=== PATIENT | male | born 1955 | race Caucasian/White ===

== ENCOUNTER 2019-06-03 11:52 | Inpatient (IN) | payer SELFPAY ==
[~2019-06-03] VITALS: Ht 167.6 cm; Wt 73.9 kg
[2019-06-03] MEDS ORDERED: NACL 0.9% 1,000 ML IV ONE (11:59)
[2019-06-03] MEDS ORDERED: ASPIRIN 81 MG TAB.CHEW PO ONE (12:00)
[2019-06-03 12:02] VITALS: BP_SYST 190
--- NOTE | 2019-06-03 12:10 | NUR ---
Patient to ER bed 4 to gown for evaluation. Side rails up. Report given to Ernesto MALAGON.
--- NOTE | 2019-06-03 12:12 | NUR ---
ER at bedside examining patient.
--- NOTE | 2019-06-03 12:13 | NUR ---
Pt presents to ED c/o CP nonradiating x 3 weeks. Pt admits to noncompliance w/meds due to inability to refill. Pt has no acute distres noted at this time. EKG done in triage prior to placement in tx area.
[2019-06-03] MEDS ORDERED: MAG HYDROX/AL HYDROX/SIMETH 30 ML, DICYCLOMINE HCL 20 MG, LIDOCAINE VISCOUS 2% 15ML (PO... PO ONE ×3 (12:15)
[2019-06-03] MEDS ORDERED: NACL 0.9% 2,000 ML IV ONE (12:15)
--- NOTE | 2019-06-03 12:17 | NUR ---
BS 366
[2019-06-03 12:32] LABS: BASOPHILS % (AUTO) 0.4 % (0.0-2.0); EOSINOPHILS % (AUTO) 0.4 % (0.0-4.0); HEMATOCRIT 50.5 % (36-54); HEMOGLOBIN 17.2 g/dL (14.0-18.0); LYMPHOCYTES # (AUTO) 1.4 K/uL (1.0-5.5); LYMPHOCYTES % (AUTO) 21.4 % (20.5-51.5); MEAN CORPUSCULAR HEMOGLOBIN 33 pg (27-31); MEAN CORPUSCULAR HGB CONC 34 % (32-36); MEAN CORPUSCULAR VOLUME 96 fL (79.0-98.0); MONOCYTES # (AUTO) 0.5 K/uL (0.0-1.0); MONOCYTES % (AUTO) 7.1 % (1.7-9.3); NEUTROPHILS # (AUTO) 4.5 K/uL (1.8-7.7); NEUTROPHILS % (AUTO) 70.7 % (40.0-70.0); PLATELET COUNT (AUTO) 229 K/uL (130-430); RED BLOOD CELL COUNT(AUTO) 5.27 MIL/uL (4.2-6.2); RED CELL DISTRIBUTION WIDTH 12.9 % (9.0-15.0); WHITE BLOOD COUNT (AUTO) 6.4 K/uL (4.8-10.8)
[2019-06-03 12:50] LABS: CALCIUM 9.1 mg/dL (8.4-11.0); CREATININE 1.22 mg/dL (0.55-1.30); POTASSIUM 4.1 mmol/L (3.5-5.1); PROTHROMBIN TIME 10.5 SECS (9.5-12.5)
--- NOTE | 2019-06-03 12:50 | NUR ---
RN places pt on tele monitor. Meds given. IV fluids infusing.
[2019-06-03 12:57] LABS: TOTAL BILIRUBIN 0.6 mg/dL (0.0-1.0)
[2019-06-03] MEDS ORDERED: NITROGLYCERIN 0.4 MG TAB.SUBL SL ONE ×2 (13:30→13:47)
[2019-06-03] MEDS ORDERED: cloNIDine HCL 0.1 MG TABLET PO ONE (13:30)
[2019-06-03] MEDS ORDERED: MORPHINE 4 MG/ML INJ. SYRINGE IVP ONE (13:30)
--- NOTE | 2019-06-03 13:39 | NUR ---
Pt had episode of chest pain while RN was at bedside. RN did stat EKG. Given to MD.
--- NOTE | 2019-06-03 13:40 | NUR ---
Nitro given, ASA given, Morphine Given. pain has subsided at this time.
[2019-06-03] MEDS ORDERED: MORPHINE 4 MG/ML INJ. SYRINGE ONE (13:47)
--- NOTE | 2019-06-03 14:00 | NUR ---
BS re check 289
--- NOTE | 2019-06-03 14:55 | NUR ---
Patient will be admitted to care of Dr. Rodriguez. Admitted to Telemetry unit. No room available per Vickie, charge nurse. Patient Telemetry Hold at this time.
[2019-06-03] MEDS ORDERED: ESOM20CA33 PO (15:08)
[2019-06-03 15:52] LABS: BILIRUBIN,URINE NEGATIVE (NEGATIVE); BLOOD, URINE NEGATIVE (NEGATIVE); CLARITY/URINE CLEAR (CLEAR); COLOR,URINE YELLOW (YELLOW); GLUCOSE,URINE 3+ (NEGATIVE); KETONES,URINE NEGATIVE (NEGATIVE); LEUKOCYTE ESTERASE ,URINE NEGATIVE (NEGATIVE); NITRITE, URINE NEGATIVE (NEGATIVE); PROTEIN URINE NEGATIVE (NEGATIVE); UROBILINOGEN,URINE 0.2 (0.2-1.0)
[2019-06-03] MEDS ORDERED: PANTOPRAZOLE SODIUM 40 MG TAB PO ONE (16:00)
[2019-06-03] MEDS ORDERED: DEXTROSE 50% JECT 50 ML DISP.SYRIN IVP PRN ×2 (16:00)
[2019-06-03 16:04] LABS: RBC,URINE 0-3 /HPF (0-3); WBC,URINE 0-3 /HPF (0-3)
[2019-06-03 16:05] LABS: BACTERIA,URINE RARE /HPF (None Seen); MUCUS,URINE None Seen /LPF (None Seen)
--- NOTE | 2019-06-03 16:10 | NUR ---
RECEIVED ROOM ASSIGNMENT FROM [facility]. PATIENT TO GO TO [facility]. DR MEJIA AT BEDSIDE.
[2019-06-03] MEDS ORDERED: LORazepam 1 MG TABLET PO PRN (16:15)
[2019-06-03] MEDS ORDERED: THIAMINE HCL 100 MG TABLET PO ONE (16:15)
[2019-06-03 16:32] LABS: OPIATE, URINE POSITIVE (NEG <=100)
[2019-06-03 16:33] LABS: BARBITURATE, URINE NEGATIVE (NEG <=200); BENZODIAZEPINE, URINE NEGATIVE (NEG <=150); CANNABINOID, URINE NEGATIVE (NEG <=50); COCAINE, URINE NEGATIVE (NEG <=150); METHAMPHETAMINES SCREEN,URINE NEGATIVE (NEG <=500); PHENCYCLIDINE SCREEN,URINE NEGATIVE (NEG <=25); UR TRICYCLIC ANTIDEPRESSANTS NEGATIVE (NEG <=300); URINE AMPHETAMINE NEGATIVE (NEG <=500); URINE METHADONE NEGATIVE (NEG <=200); URINE OXYCODONE SCREEN NEGATIVE (NEG <=100); URINE PROPOXYPHENE SCREEN NEGATIVE (NEG <=300)
--- NOTE | 2019-06-03 16:35 | NUR ---
ADMISSION The patient, KWASI HAYDEN, 63 y/o, M admitted by DEREK MEJIA MD, was given written information regarding hospital policies, unit procedures and contact persons. NO ACUTE DISTRESS NOTED. ALL NEEDS MET. CALL LIGHT IN REACH. BED IN LOWEST AND LOCKED POSITION. FALL AND ASPIRATION PRECAUTIONS IN PLACE. RECEIVING 2D ECHO AT BEDSIDE. CONTINUE TO MONITOR. Valuables were checked and LOGGED IN.
[2019-06-03 17:02] VITALS: BP_SYST 169
[2019-06-03] MEDS ORDERED: FLU VACC QS2019-20 36MOS UP/PF 60 MCG/0.5 ML SYRINGE I.M. PRN (17:45)
--- NOTE | 2019-06-03 17:56 | NUR ---
PRN MEDS PT COMPLAINING OF ANXIETY. ATIVAN ADMINISTERED ORDERED PER MD. EDUCATION GIVEN. TOLERATED WELL. NO ACUTE DISTRESS NOTED. ALL NEEDS MET. CALL LIGHT IN REACH. FALL AND ASPIRATION PRECAUTIONS IN PLACE. CONTINUE TO MONITOR.
--- NOTE | 2019-06-03 18:45 | NUR ---
CLOSING NOTE PT AWAKE, ALERT AND ORIENTED IN BED. NONLABORED BREATHING NOTED. PAIN IS CONTROLLED. NO ACUTE DISTRESS NOTED. IV LINE INTACT AND PATENT, NO SIGNS OF INFILTRATION. ALL NEEDS MET. CALL LIGHT IN REACH. FALL AND ASPIRATION PRECAUTIONS IN PLACE. BED IN LOWEST AND LOCKED POSITION. WILL ENDORSE TO NOC NURSE.
--- NOTE | 2019-06-03 19:30 | NUR ---
Opening notes Received report. Patient is resting in bed. Patient complaining of chest pain, does not appear to be in distress. Breathing even and unlabored. Will page MD for orders. IV patent and intact, no signs of infiltration noted. Clarified with patient about code status, patient stating "I just do not want to end up as a vegetable." Patient would like to speak to MD for more information. No other needs at this time. Call light with the patient. Safety precautions in place.
[2019-06-03 20:00] VITALS: BP_SYST 134
--- NOTE | 2019-06-03 20:10 | NUR ---
Natalie Rodriguez s/w Amy
[2019-06-03] MEDS ORDERED: NITROGLYCERIN 0.4 MG TAB.SUBL SL PRN (20:15)
--- NOTE | 2019-06-03 20:15 | NUR ---
Spoke to Dr. Rodriguez and informed MD about patient's chest pain and also clarified accucheck orders. New orders for nitroglycerin, morphine, and fingersticks ACHS. Verified with .
[2019-06-03] MEDS: ENOXAPARIN SODIUM 40 MG/0.4 ML SYRINGE SUBCUT SCH (20:40)
[2019-06-03] MEDS: INSULIN REGULAR, HUMAN 100 UNITS/ML, 10 ML VIAL (humuLIN R) SUBCUT PRN (20:49)
[2019-06-03] MEDS: CARVEDILOL 6.25 MG TABLET (COREG) PO SCH (21:00)
--- NOTE | 2019-06-03 21:00 | NUR ---
Medications given. Educated the action and side effects of medications. Patient verbalized understanding and tolerated well. Will continue to monitor. No other needs. call light with the patient. Safety precautions in place.
[2019-06-03] MEDS: LOSARTAN POTASSIUM 50 MG TABLET (COZAAR) PO SCH (21:57)
[2019-06-03] MEDS: TEMAZEPAM 15 MG CAPSULE PO SCH (21:58)
--- NOTE | 2019-06-03 22:30 | NUR ---
Resting Patient resting in bed, no signs of distress noted. VSS. Patient denies pain at this time. Provided patient with ice water. No other needs. Call light with the patient. Safety precautions in place.
[2019-06-04] VITALS: BP_SYST 125
--- NOTE | 2019-06-04 00:30 | NUR ---
Sleeping No signs of distress noted. Breathing even and unlabored. Call light with the patient. Safety precautions in place.
--- NOTE | 2019-06-04 02:30 | NUR ---
Sleeping No signs of distress noted. Breathing even and unlabored. Call light with the patient. safety precautions in place.
[2019-06-04] MEDS: MORPHINE 4 MG/ML INJ. SYRINGE IVP PRN ×3 (04:19→16:05)
--- NOTE | 2019-06-04 04:50 | NUR ---
Pain Patient complains of pain, prn pain medications given. Educated the action and side effects and fall precautions. Patient verbalized understanding and tolerated well. No other need. Call light with the patient. Safety precautions in place.
[2019-06-04] MEDS: INSULIN REGULAR, HUMAN 100 UNITS/ML, 10 ML VIAL (humuLIN R) SUBCUT PRN ×4 (06:23→20:42)
--- NOTE | 2019-06-04 06:50 | NUR ---
Closing notes Patient is resting in bed, watching TV. No signs of distress noted. Breathing even and unlabored. IV patent and intact, no signs of infiltration noted. No complaints of pain. all needs met throughout the shift. Call light with the patient. Safety precautions in place. Will endorse care to day shift RN.
--- NOTE | 2019-06-04 07:25 | NUR ---
Opening Note Received bedside report from endorsing RN for continuation of care. Received patient awake in bed, watching TV and denies any SOB or pain. No signs or symptoms of acute distress noted. Bed locked in lowest position, bed alarm on, and call light within reach. Education provided on use of call light and patient verbalized understanding. Fall and safety precautions in place.
[2019-06-04 08:00] VITALS: BP_SYST 132
[2019-06-04] MEDS: ASPIRIN 81 MG TABLET(ECOTRIN) PO SCH (08:29)
[2019-06-04] MEDS: THIAMINE HCL 100 MG TABLET PO SCH (08:30)
[2019-06-04] MEDS: LOSARTAN POTASSIUM 50 MG TABLET (COZAAR) PO SCH ×2 (08:30→20:31)
[2019-06-04] MEDS: PANTOPRAZOLE SODIUM 40 MG TAB PO SCH (08:30)
[2019-06-04] MEDS: CARVEDILOL 6.25 MG TABLET (COREG) PO SCH ×2 (08:31→20:31)
[2019-06-04 09:12] LABS: BASOPHILS % (AUTO) 0.4 % (0.0-2.0); EOSINOPHILS # (AUTO) 0.1 K/uL (0.0-0.4); EOSINOPHILS % (AUTO) 1.1 % (0.0-4.0); HEMATOCRIT 45.3 % (36-54); HEMOGLOBIN 15.4 g/dL (14.0-18.0); LYMPHOCYTES # (AUTO) 2.6 K/uL (1.0-5.5); MEAN CORPUSCULAR HEMOGLOBIN 33 pg (27-31); MEAN CORPUSCULAR HGB CONC 34 % (32-36); MEAN CORPUSCULAR VOLUME 96 fL (79.0-98.0); MONOCYTES # (AUTO) 0.4 K/uL (0.0-1.0); MONOCYTES % (AUTO) 6.5 % (1.7-9.3); NEUTROPHILS # (AUTO) 3.4 K/uL (1.8-7.7); PLATELET COUNT (AUTO) 212 K/uL (130-430); RED BLOOD CELL COUNT(AUTO) 4.73 MIL/uL (4.2-6.2); RED CELL DISTRIBUTION WIDTH 12.8 % (9.0-15.0); WHITE BLOOD COUNT (AUTO) 6.5 K/uL (4.8-10.8)
[2019-06-04 09:43] LABS: ALBUMIN 3.4 g/dL (3.4-4.8); CALCIUM 8.4 mg/dL (8.4-11.0); CREATININE 0.86 mg/dL (0.55-1.30); FREE T4 (FREE THYROXINE) 1.1 ng/dl (0.8-1.5); THYROID STIMULATING HORMONE 1.01 uIu/mL (0.36-3.74); TOTAL BILIRUBIN 0.5 mg/dL (0.0-1.0)
--- NOTE | 2019-06-04 10:22 | NUR ---
Dr. Reynolds in to see patient. New orders received.
--- NOTE | 2019-06-04 11:30 | NUR ---
Dr. Rodriguez in to see patient. New orders received.
--- NOTE | 2019-06-04 12:08 | NUR ---
Patient's at bedside. Updated on patient status and plan of care. Education provided and all questions answered clearly.
[2019-06-04 12:15] VITALS: BP_SYST 144
--- NOTE | 2019-06-04 12:34 | NUR ---
GI consult called: for Dr. Tapia, regarding epigastric pain, ordered by Dr. Rodriguez, spoke with Angle.
[2019-06-04] MEDS ORDERED: PANTOPRAZOLE SODIUM 40 MG/VIAL (PROTONIX) IVP ONE (15:15)
--- NOTE | 2019-06-04 15:26 | NUR ---
Received new orders per Dr. Wilburn.
[2019-06-04 16:14] VITALS: BP_SYST 153
[2019-06-04] MEDS: SUCRALFATE 1 GM TABLET PO SCH ×2 (17:10→20:32)
--- NOTE | 2019-06-04 18:02 | NUR ---
Patient sitting up in bed, eating dinner and watching TV. Patient denies any SOB or pain. No signs or symptoms of acute distress noted.
--- NOTE | 2019-06-04 19:10 | NUR ---
Endorsement Endorsed bedside report to oncoming RN using SBAR approach for continuation of care.
--- NOTE | 2019-06-04 19:30 | NUR ---
Opening notes Received report. Patient is resting in bed. No signs of distress noted. Breathing even and unlabored on room air. Patient denies pain at this time. Updated patient on plan of care. Patient to have nothing by mouth starting midnight. Patient verbalized understanding. No other needs. Call light with the patient. Safety precautions in place.
[2019-06-04 20:05] VITALS: BP_SYST 151
[2019-06-04] MEDS: PANTOPRAZOLE SODIUM 40 MG/VIAL (PROTONIX) IVP SCH (20:32)
--- NOTE | 2019-06-04 20:35 | NUR ---
Medications given. Educated the action and side effects of medications. Patient verbalized understanding and tolerated well. No signs of allergic reaction noted. No other needs at this time. Call light with the patient. Safety precautions in place.
[2019-06-04] MEDS: ENOXAPARIN SODIUM 40 MG/0.4 ML SYRINGE SUBCUT SCH (20:40)
[2019-06-04] MEDS: TEMAZEPAM 15 MG CAPSULE PO SCH (20:41)
--- NOTE | 2019-06-04 23:16 | NUR ---
Sleeping No signs of distress noted. Breathing even and unlabored. No needs. Call light with the patient. Safety precautions in place.
[2019-06-04 23:43] VITALS: BP_SYST 111
--- NOTE | 2019-06-05 02:00 | NUR ---
Sleeping No signs of distress noted. Breathing even and unlabored. Call light with the patient. Safety precautions in place.
--- NOTE | 2019-06-05 04:30 | NUR ---
Sleeping Patient asleep. No signs of distress noted. Breathing even and unlabored. Call light with the patient. Safety precautions in place.
[2019-06-05] MEDS: SUCRALFATE 1 GM TABLET PO SCH ×4 (06:19→21:50)
--- NOTE | 2019-06-05 07:04 | NUR ---
Closing notes Patient is resting in bed, watching TV. No signs of distress noted. Breathing even and unlabored. IV patent and intact, no signs of infiltration noted. No complaints of pain. Patient NPO since midnight. All needs met throughout the shift. Call light with the patient. Safety precautions in place. Will endorse care to day shift RN.
--- NOTE | 2019-06-05 07:30 | NUR ---
AM ROUNDS: PATIENT AWAKE ON THE BED. STILL COMPLAINING OF CHEST THROBBING,NO MEDS GIVEN PER NUCLEAR MEDICINE, DUE TO PT FOR DAVID SCAN THIS MORNING.MAINTAINED NOTHING BY MOUTH INSTRUCTED,PT UNDERSTAND THE INSTRUCTIONS. CALL LIGHT WITH IN REACH. CONDITION GUARDED.
[2019-06-05 07:53] VITALS: BP_SYST 148
[2019-06-05] MEDS ORDERED: REGADENOSON 0.4 MG/5 ML SYRINGE IVP ONE (09:00)
[2019-06-05] MEDS: PANTOPRAZOLE SODIUM 40 MG TAB PO SCH (09:00)
--- NOTE | 2019-06-05 09:25 | NUR ---
Nuclear medicine: Patient to nuclear medicine for [facility] stress study via wheel chair.Stable. Maintained npo as ordered.
--- NOTE | 2019-06-05 11:00 | NUR ---
Rn rounds: Patient back from nuclear medicine,in the room. Stable.
--- NOTE | 2019-06-05 11:10 | NUR ---
High fat diet: High fat diet was given to patient and tolerated well,as part of mikhail scan study.
--- NOTE | 2019-06-05 11:30 | NUR ---
Blood sugar: Blood sugar taken,with insulin coverage given per sliding scale.no problem.
[2019-06-05] MEDS: INSULIN REGULAR, HUMAN 100 UNITS/ML, 10 ML VIAL (humuLIN R) SUBCUT PRN ×2 (12:10→17:30)
[2019-06-05] MEDS: ASPIRIN 81 MG TABLET(ECOTRIN) PO SCH (13:36)
[2019-06-05] MEDS: PANTOPRAZOLE SODIUM 40 MG/VIAL (PROTONIX) IVP SCH ×2 (13:36→21:49)
[2019-06-05] MEDS: LOSARTAN POTASSIUM 50 MG TABLET (COZAAR) PO SCH ×2 (13:36→21:51)
[2019-06-05] MEDS: CARVEDILOL 6.25 MG TABLET (COREG) PO SCH ×2 (13:37→21:50)
[2019-06-05 15:42] VITALS: BP_SYST 118
[2019-06-05] MEDS: THIAMINE HCL 100 MG TABLET PO SCH (15:42)
[2019-06-05] MEDS ORDERED: LACTULOSE 20 GM/30 ML UDC PO ONE (17:30)
--- NOTE | 2019-06-05 17:31 | NUR ---
Blood Sugar: Blood qhgcl=597ia/dl,Humulin R 2 units subq given per sliidng scale. No problem.
--- NOTE | 2019-06-05 17:32 | NUR ---
Dc Tele: Downgraded patient to medical surgical unit as ordered.
--- NOTE | 2019-06-05 18:49 | NUR ---
End of shift: Patient tolerated meal. No acute distress. will endorsed to incoming night nurse patient for egd in am and gastric emptying.Instructed npo after midnight. condition guarded.
[2019-06-05 20:00] VITALS: BP_SYST 148
--- NOTE | 2019-06-05 21:00 | NUR ---
PT MONITORED AWAKE ALERT AND ORIENTED , PT IS SCHEDULED TO GO FOR GASTRIC EMPTING AND EGD IN THE MORNING . PT INSTRUCTED TO BE NPO AFTER MIDNIGHT PT GIVEN MORPHINE FOR PAIN , INSTRUCTED THAT HE CAN NOT GET ANY MORE PAIN MEDICATION FROM 0500 PT BLOOD SUGAR IS 153 NO , NO COVERAGE .WILL MONITOR PT THROUGH THE NIGHT .
[2019-06-05] MEDS: MORPHINE 4 MG/ML INJ. SYRINGE IVP PRN (21:40)
[2019-06-05] MEDS: TEMAZEPAM 15 MG CAPSULE PO SCH (21:51)
[2019-06-05] MEDS: ENOXAPARIN SODIUM 40 MG/0.4 ML SYRINGE SUBCUT SCH (21:54)
[2019-06-06] VITALS: BP_SYST 140; BP_SYST 142
--- NOTE | 2019-06-06 | NUR ---
PT NPO FOR PROCEDURE TOMMORROW , CONTINUE TO MONITOR PT .
--- NOTE | 2019-06-06 05:30 | NUR ---
PT BLOOD SUGAR IS 138. PT CONTINUE TO BE NPO . FOR EGD AND GASTRIC EMPTYING. CHARLI CONTINUE TO MONITOR PTAS STATED .
[2019-06-06] MEDS: SUCRALFATE 1 GM TABLET PO SCH ×4 (07:00→20:58)
--- NOTE | 2019-06-06 07:30 | NUR ---
OPENING NOTES: RECEIVED PATIENT FROM TRACK OILER NURSE. PATIENT IS AWAKE AND ALERT x4 LAYING DOWN IN BED. PATIENT STATES HE HAS PAIN 6/10. PRN PAIN MEDS WILL BE GIVEN. PATIENT IS TOLERATING OXYGEN AT ROOM AIR WITH NO SIGNS OF DISTRESS OR SHORTNESS OF BREATH NOTED. IV SITE IS PATENT WITH NO SIGNS OF INFILTRATION NOTED. PATIENT IN STABLE CONDITION. SAFETY, FALL, AND ASPIRATION PRECAUTIONS ARE IN PLACE. BED LOCKED IN LOWEST POSITION WITH CALL LIGHT IN REACH. WILL CONTINUE TO MONITOR PATIENT FOR ANY CHANGES.
[2019-06-06] MEDS ORDERED: DIPHENHYDRAMINE INJ 50 MG/ML VIAL ONE (07:43)
[2019-06-06] MEDS ORDERED: MEPERIDINE HCL/PF 100 MG/ML AMP ONE (07:43)
[2019-06-06] MEDS ORDERED: SIMETHICONE 40 MG/0.6 ML ML ONE (07:43)
[2019-06-06] MEDS: metFORMIN HCL 500 MG TABLET PO SCH ×2 (08:00→17:21)
[2019-06-06 08:24] VITALS: BP_SYST 146
[2019-06-06] MEDS: MIDAZOLAM HCL 5 MG/5 ML VIAL ONE ×2 (08:47→08:50)
[2019-06-06] MEDS: PANTOPRAZOLE SODIUM 40 MG TAB PO SCH (09:54)
[2019-06-06] MEDS: LOSARTAN POTASSIUM 50 MG TABLET (COZAAR) PO SCH ×2 (09:54→21:03)
[2019-06-06] MEDS: THIAMINE HCL 100 MG TABLET PO SCH (09:54)
[2019-06-06] MEDS: PANTOPRAZOLE SODIUM 40 MG/VIAL (PROTONIX) IVP SCH (09:55)
[2019-06-06] MEDS: ASPIRIN 81 MG TABLET(ECOTRIN) PO SCH (09:55)
[2019-06-06] MEDS: CARVEDILOL 6.25 MG TABLET (COREG) PO SCH ×2 (09:55→21:00)
--- NOTE | 2019-06-06 10:05 | NUR ---
RN ROUNDS: PATIENT IS AWAKE AND ALERT x4 LAYING DOWN IN BED. PATIENT STATES HIS PAIN IS STILL 7/10. PRN PAIN MEDS WILL BE GIVEN. NO SIGNS OF DISTRESS OR SHORTNESS OF BREATH NOTED. PATIENT IN STABLE CONDITION. WILL CONTINUE TO MONITOR PATIENT FOR ANY CHANGES.
[2019-06-06 11:23] VITALS: BP_SYST 122
[2019-06-06] MEDS: INSULIN REGULAR, HUMAN 100 UNITS/ML, 10 ML VIAL (humuLIN R) SUBCUT PRN ×3 (11:32→21:59)
[2019-06-06] MEDS: MORPHINE 4 MG/ML INJ. SYRINGE IVP PRN (11:50)
--- NOTE | 2019-06-06 11:50 | NUR ---
PRN PAIN MEDS GIVEN: PATIENT STATES HIS PAIN IS 7/10. PRN PAIN MED WAS GIVEN. WILL RECHECK PATIENT TO EVALUATE EFFECTIVENESS.
--- NOTE | 2019-06-06 12:08 | NUR ---
RN ROUNDS: PATIENT IS AWAKE AND ALERT x4 LAYING DOWN IN BED. NO SIGNS OF DISTRESS OR SHORTNESS OF BREATH NOTED. PATIENT IN STABLE CONDITION. WILL CONTINUE TO MONITOR PATIENT FOR ANY CHANGES.
[2019-06-06] MEDS ORDERED: LACTULOSE 20 GM/30 ML UDC PO ONE (14:00)
--- NOTE | 2019-06-06 14:14 | NUR ---
RN ROUNDS: PATIENT IS ASLEEP LAYING DOWN IN BED. NO SIGNS OF DISTRESS OR SHORTNESS OF BREATH NOTED. PATIENT IN STABLE CONDITION. WILL CONTINUE TO MONITOR PATIENT FOR ANY CHANGES.
[2019-06-06 15:58] VITALS: BP_SYST 136
--- NOTE | 2019-06-06 16:29 | NUR ---
RN ROUNDS: PATIENT IS AWAKE AND ALERT x4 LAYING DOWN IN BED. PATIENT DENIES ANY PAIN AT THE MOMENT. NO SIGNS OF DISTRESS OR SHORTNESS OF BREATH NOTED. PATIENT IN STABLE CONDITION. WILL CONTINUE TO MONITOR PATIENT FOR ANY CHANGES.
--- NOTE | 2019-06-06 18:33 | NUR ---
CLOSING NOTES: PATIENT IS AWAKE AND ALERT x4 LAYING DOWN IN BED. PATIENT DENIES ANY PAIN AT THE MOMENT. PATIENT IS TOLERATING OXYGEN AT ROOM AIR WITH NO SIGNS OF DISTRESS OR SHORTNESS OF BREATH NOTED. IV SITE IS PATENT WITH NO SIGNS OF INFILTRATION NOTED. PATIENT IN STABLE CONDITION. SAFETY, FALL, AND ASPIRATION PRECAUTIONS REMAINED IN PLACE THROUGHOUT THE SHIFT. BED LOCKED IN LOWEST POSITION WITH CALL LIGHT IN REACH. WILL ENDORSE PATIENT CARE TO ONCOMING PROPERTY INSURANCE AGENT NURSE.
[2019-06-06 19:00] VITALS: BP_SYST 159
[2019-06-06 20:00] VITALS: BP_SYST 133
[2019-06-06] MEDS: TEMAZEPAM 15 MG CAPSULE PO SCH (21:01)
[2019-06-06] MEDS: ENOXAPARIN SODIUM 40 MG/0.4 ML SYRINGE SUBCUT SCH (21:06)
[2019-06-07] MEDS: INSULIN REGULAR, HUMAN 100 UNITS/ML, 10 ML VIAL (humuLIN R) SUBCUT PRN ×2 (00:12→11:32)
[2019-06-07] MEDS: MORPHINE 4 MG/ML INJ. SYRINGE IVP PRN ×2 (00:16→13:36)
[2019-06-07 01:06] VITALS: BP_SYST 134
[2019-06-07] MEDS: SUCRALFATE 1 GM TABLET PO SCH ×2 (05:24→11:28)
--- NOTE | 2019-06-07 06:18 | NUR ---
Patient in bed. No acute distress noted. Remains NPO for procedure. Will continue to monitor.
[2019-06-07] MEDS: metFORMIN HCL 500 MG TABLET PO SCH (06:59)
--- NOTE | 2019-06-07 07:38 | NUR ---
OPENING NOTES: RECEIVED PATIENT FROM SILK HANGER NURSE. PATIENT IS AWAKE AND ALERT x4 LAYING DOWN IN BED. PATIENT DENIES ANY PAIN AT THE MOMENT. PATIENT IS TOLERATING OXYGEN AT ROOM AIR WITH NO SIGNS OF DISTRESS OR SHORTNESS OF BREATH NOTED. IV SITE IS PATENT WITH NO SIGNS OF INFILTRATION NOTED. PATIENT IS NPO FOR PROCEDURE THIS MORNING. PATIENT IN STABLE CONDITION. SAFETY, FALL, AND ASPIRATION PRECAUTIONS ARE IN PLACE. BED LOCKED IN LOWEST POSITION WITH CALL LIGHT IN REACH. WILL CONTINUE TO MONITOR PATIENT FOR ANY CHANGES.
[2019-06-07 08:02] VITALS: BP_SYST 138
--- NOTE | 2019-06-07 09:10 | NUR ---
PATIENT TAKEN TO GI LAB. PATIENT IN STABLE CONDITION. WILL AWAIT PATIENT'S ARRIVAL BACK ON THE FLOOR.
--- NOTE | 2019-06-07 11:00 | NUR ---
RN ROUNDS: PATIENT RETURNED FROM GI LAB. PATIENT DENIES ANY PAIN AT THE MOMENT. NO SIGNS OF DISTRESS OR SHORTNESS OF BREATH NOTED. PATIENT IN STABLE CONDITION. WILL CONTINUE TO MONITOR PATIENT FOR ANY CHANGES.
[2019-06-07] MEDS: ASPIRIN 81 MG TABLET(ECOTRIN) PO SCH (11:27)
[2019-06-07] MEDS: PANTOPRAZOLE SODIUM 40 MG TAB PO SCH (11:28)
[2019-06-07] MEDS: THIAMINE HCL 100 MG TABLET PO SCH (11:29)
[2019-06-07] MEDS: LOSARTAN POTASSIUM 50 MG TABLET (COZAAR) PO SCH (11:29)
[2019-06-07] MEDS: CARVEDILOL 6.25 MG TABLET (COREG) PO SCH (11:30)
[2019-06-07 11:37] VITALS: BP_SYST 178
--- NOTE | 2019-06-07 12:04 | NUR ---
RN ROUNDS: PATIENT IS AWAKE AND ALERT x4 SITTING UP IN BED EATING LUNCH. FAMILY AT BEDSIDE. PATIENT DENIES ANY PAIN AT THE MOMENT. PATIENT IN STABLE CONDITION. WILL CONTINUE TO MONITOR PATIENT FOR ANY CHANGES.
[2019-06-07] MEDS ORDERED: LOSA50TA3 PO (13:21)
[2019-06-07] MEDS ORDERED: PRO40 PO (13:21)
[2019-06-07] MEDS ORDERED: SUCR1TAB78 PO (13:21)
[2019-06-07] MEDS ORDERED: Thiamine Hcl PO (13:21)
[2019-06-07] MEDS ORDERED: COR6.25 PO (13:21)
[2019-06-07] MEDS ORDERED: FOLI-43 PO (13:21)
[2019-06-07] MEDS ORDERED: THIA100T73 PO (13:21)
[2019-06-07] MEDS ORDERED: GLU500 PO (13:21)
[2019-06-07 13:47] VITALS: BP_SYST 178
--- NOTE | 2019-06-07 14:16 | NUR ---
D/C Patient: Patient given medication reconciliation form and D/C instructions. Exit Care provided. Patient verbalized understanding. MD discussed with patient the results and treatment provided. Ambulatory with steady gait for discharge to home. Patient in stable condition, ID band removed. IV catheter removed, intact and dressing applied, no active bleeding. Rx of THIAMINE, COZAAR, PROTONIX AND CARAFATE SENT TO PREFERRED PHARMACY. Patient educated on pain management. All belongings sent with patient.
--- NOTE | 2019-06-07 16:07 | NUR ---
RESOURCES: AGRICULTURE DEPARTMENT CHAIR provided patient with advanced directive and informed Nanci K of charge operator request.
== END 2019-06-07 14:16 | disposition home or self-care (01) | DRG 392 ==
LOC: SED 11:52 → STU 14:53 → SMU 06-05 17:42
PROVIDERS: ADMIT Internal Medicine; ATTEND Internal Medicine
PROC: 0DB68ZX Excision of Stomach, Via Natural or Artificial Opening Endoscopic, Diagnostic (ICD-10-PCS; 2019-06-06)
PROC: 0DB18ZX Excision of Upper Esophagus, Via Natural or Artificial Opening Endoscopic, Diagnostic (ICD-10-PCS; principal; 2019-06-06 08:00)
DX: K21.0 Gastro-esophageal reflux disease with esophagitis (principal); I20.1 Angina pectoris with documented spasm; K29.20 Alcoholic gastritis without bleeding; K29.80 Duodenitis without bleeding; E11.65 Type 2 diabetes mellitus with hyperglycemia; F17.210 Nicotine dependence, cigarettes, uncomplicated; J44.9 Chronic obstructive pulmonary disease, unspecified; I10 Essential (primary) hypertension; Z60.2 Problems related to living alone; Z83.3 Family history of diabetes mellitus; Z91.14 Patient's other noncompliance with medication regimen; Z79.899 Other long term (current) drug therapy; Z90.49 Acquired absence of other specified parts of digestive tract
CPT/HCPCS: 36415; 43239; 71045; 78264-TC; 80053; 80061; 80307; 81000-TC; 82550-TC; 82962; 83036; 83605; 83690-TC; 83735-TC; 83880; 84439; 84443-TC; 84484; 85025; 85610-TC; 85730-TC; 87040-TC; 87081; 88305; 88312; 88313; 93005; 93017; 93306; 96365; 96375; 96376; 99285; A9500; A9541; C9113; G0378; J1200; J1650; J2001; J2175; J2250; J2270; J2785

== ENCOUNTER 2019-06-22 19:20 | Emergency (ER) | payer BC ==
[~2019-06-22] VITALS: Ht 162.6 cm; Wt 73.9 kg
[~2019-06-22 19:20] MED LIST: COR6.25 PO; FOLI-43 PO; GLU500 PO; LOSA50TA3 PO; PRO40 PO; SUCR1TAB78 PO; THIA100T73 PO; Thiamine Hcl PO
[2019-06-22 19:23] VITALS: BP_SYST 156
--- NOTE | 2019-06-22 19:38 | NUR ---
Verbal orders received from Dr. Parikh to administer Aspirin 325mg given. Medication was given, pt tolerated well.
[2019-06-22] MEDS: NITROGLYCERIN LINGUAL 400 mCg/SPRAY SL PRN ×3 (19:39→19:49)
--- NOTE | 2019-06-22 19:39 | NUR ---
Nitroglycerin 0.4 mg was given sublingually. Pt tolerated well; BP 156/78. HR 67 RR 15 O2 99% RA
--- NOTE | 2019-06-22 19:41 | NUR ---
# 18 gauge angiocath placed to Left wrist. Use of asceptic technique. Opsite placed over site. Blood return noted. Flushed with 10 cc of normal saline. No evidence of infiltration noted. Patient tolerated well. Placed by VESNA Lema.
--- NOTE | 2019-06-22 19:41 | NUR ---
ER Dr. Parikh at bedside examining patient.
--- NOTE | 2019-06-22 19:43 | NUR ---
Verbal ordered received by Dr. Parikh to administer Heparin 4000 units IVP. Medication was given IVP, pt tolerated well.
--- NOTE | 2019-06-22 19:45 | NUR ---
2nd dose of Nitroglycerin 0.4mg SL was given. Pt tolerated well; BP 139/77 HR 74 RR 18 O2 98% RA.
--- NOTE | 2019-06-22 19:48 | NUR ---
REPORT GIVEN TO [facility] EMERGENCY ROOM VESNA CESPEDES.
--- NOTE | 2019-06-22 19:49 | NUR ---
3rd Nitroglycerin 0.4mg SL given, pt tolerated well.
--- NOTE | 2019-06-22 19:52 | NUR ---
REPORT GIVEN TO PHOTO MASK INSPECTOR COLLIN. LEFT UNIT VIA [facility].
[2019-06-22] MEDS ORDERED: ASPIRIN 325 MG TABLET ONE (19:53)
[2019-06-22] MEDS ORDERED: ASPIRIN 81 MG TAB.CHEW ONE (19:53)
[2019-06-22] MEDS ORDERED: HEPARIN SODIUM,PORCINE 5000 UNITS/ML VIAL ONE (19:54)
[2019-06-22] MEDS ORDERED: NITROGLYCERIN 0.4 MG TAB.SUBL SL ONE (19:54)
[2019-06-22 19:59] LABS: BASOPHILS % (AUTO) 0.4 % (0.0-2.0); EOSINOPHILS # (AUTO) 0.1 K/uL (0.0-0.4); EOSINOPHILS % (AUTO) 1.1 % (0.0-4.0); HEMOGLOBIN 15.8 g/dL (14.0-18.0); LYMPHOCYTES # (AUTO) 2.3 K/uL (1.0-5.5); LYMPHOCYTES % (AUTO) 25.6 % (20.5-51.5); MEAN CORPUSCULAR HEMOGLOBIN 32 pg (27-31); MEAN CORPUSCULAR HGB CONC 34 % (32-36); MEAN CORPUSCULAR VOLUME 94 fL (79.0-98.0); MONOCYTES # (AUTO) 0.7 K/uL (0.0-1.0); MONOCYTES % (AUTO) 7.4 % (1.7-9.3); NEUTROPHILS % (AUTO) 65.5 % (40.0-70.0); PLATELET COUNT (AUTO) 258 K/uL (130-430); RED BLOOD CELL COUNT(AUTO) 4.87 MIL/uL (4.2-6.2); RED CELL DISTRIBUTION WIDTH 12.8 % (9.0-15.0); WHITE BLOOD COUNT (AUTO) 9.1 K/uL (4.8-10.8)
[2019-06-22 20:00] VITALS: BP_SYST 135
[2019-06-22] MEDS ORDERED: ASPIRIN 325 MG TABLET PO ONE (20:00)
[2019-06-22] MEDS ORDERED: HEPARIN SODIUM,PORCINE 5000 UNITS/ML VIAL IVP ONE (20:00)
[2019-06-22 20:07] LABS: CALCIUM 8.9 mg/dL (8.4-11.0); CREATININE 1.01 mg/dL (0.55-1.30); POTASSIUM 3.7 mmol/L (3.5-5.1)
[2019-06-22 20:13] LABS: ALBUMIN 3.8 g/dL (3.4-4.8); TOTAL BILIRUBIN 0.5 mg/dL (0.0-1.0)
[2019-06-22 20:16] LABS: INR 1.1 (0.80-1.20); PROTHROMBIN TIME 10.6 SECS (9.5-12.5)
== END 2019-06-22 19:52 | disposition short-term general hospital (02) ==
LOC: SED 19:20
DX: I21.9 Acute myocardial infarction, unspecified (principal); R07.89 Other chest pain; I10 Essential (primary) hypertension; K21.9 Gastro-esophageal reflux disease without esophagitis; E11.9 Type 2 diabetes mellitus without complications; F17.210 Nicotine dependence, cigarettes, uncomplicated; Z79.899 Other long term (current) drug therapy
CPT/HCPCS: 36415; 80053; 82962; 83880; 84484; 85025; 85610; 85730; 96374; 99285; J1644